=== PATIENT | male | born 1990 | race Caucasian/White ===

== ENCOUNTER 2022-11-30 18:13 | Emergency (ER) | payer SELFPAY ==
[2022-11-30 18:31] VITALS: BP 166/100; PULSE 93; RESP 16; TEMP 37.1; O2SAT 100
--- NOTE | 2022-11-30 19:07 | DI.RAD.S_ITS ---
PROCEDURE: XR CHEST 2V INDICATIONS: pain w/ inspiration TECHNIQUE: 2 views of the chest were acquired. COMPARISON: [facility] ([place]), CR, XR CHEST 2V, 10/30/2022, 10:33. FINDINGS: Surgical changes and devices: None. Lungs and pleura: Mild pulmonary vascular congestion is seen. No definite focal infiltrate. No pleural effusions or pneumothorax. Mediastinum: Mediastinal contours are normal. Heart size is normal. Bones and chest wall: No suspicious bony abnormalities. Soft tissues appear unremarkable. IMPRESSION: Mild congestion. No definite focal infiltrate. No pleural effusion or pneumothorax. Dictated by: Donald Richardson M.D. on 11/30/2022 at 19:22 Approved by: Donald Richardson M.D. on 11/30/2022 at 19:22
--- NOTE | 2022-11-30 23:55 | ED_ITS ---
HPI - Chest Pain General Chief Complaint: Chest Pain Stated Complaint: Sharp pain when taking a deep breathe Time Seen by Provider: 11/30/22 23:55 History of Present Illness HPI narrative: The patient healthy 32-year-old male presents today with right-sided rib pain. Started yesterday when he woke up. He was able to go to work. However today he was digging when he was having increasing pain he felt like sharp shooting pain going straight through him. Hurts to breathe hurts to move it is pinpoint in 1 particular spot. He is not had any fever chills or other symptoms. He reports that 2 weeks ago he is something similar but on the left side went to the doctor and he had be monitored Related Data Home Medications Medication Instructions Recorded Confirmed aspirin 325 mg tablet 325 mg PO PRN PRN ##0 05/18/17 Allergies Allergy/AdvReac Type Severity Reaction Status Date / Time Penicillins [PENICILLINS] Allergy Unknown Unverified 12/29/17 11:58 Review of Systems Review of Systems ROS Unobtainable: All systems reviewed & are unremarkable except as noted in HPI and below Patient History Social History Smoking Status: Current every day smoker Smoking Status: Current every day smoker tobacco type: cigarettes Substance Use Type: does not use Exam Initial Vital Signs Initial Vital Signs: Vital Signs Temperature 98.7 F 11/30/22 18:31 Pulse Rate 93 H 11/30/22 18:31 Respiratory Rate 16 11/30/22 18:31 Blood Pressure 166/100 H 11/30/22 18:31 Pulse Oximetry 100 11/30/22 18:31 Oxygen Delivery Method Room Air 11/30/22 18:31 GENERAL: Alert pleasant 32-year-old male and in no acute distress. HEENT: Head atraumatic,EOMI, pupils reactive, face symmetric, moist mucous membranes CARDIOVASCULAR: Regular rate and rhythm without murmurs, rubs or gallops. RESPIRATORY: Breath sounds equal bilaterally, no wheezes rales or rhonchi. Right lower anterior ribs tender to palpation 1 particular spot reproducible with palpation ABDOMEN: Soft, nontender. Normoactive bowel sounds all 4 quadrants. No guarding or rebound. Negative Aldridge sign no epigastric pain no guarding no rebound EXTREMITIES: Normal range of motion, no clubbing or edema. Neurovascularly intact NEUROLOGICAL: Alert and oriented x4. SKIN: Warm, dry, no laceration, no petechiae, no rashes or lesions. Course Orders Ordered: Discontinued Medications Ibuprofen (Ibuprofen 400 Mg Tablet) 800 mg PO NOW ONE Stop: 12/01/22 00:05 Last Admin: 12/01/22 00:09 Dose: 800 mg Documented By: MANUEL Ibuprofen (Ibuprofen 400 Mg Tablet) 400 mg PO NOW ONE Stop: 12/01/22 00:13 Last Admin: 12/01/22 00:17 Dose: Not Given Documented By: MANUEL Vital Signs Vital signs: Vital Signs - 8 hr 12/01/22 00:24 Pulse Rate 86 Respiratory Rate 18 Blood Pressure 158/90 H Pulse Oximetry 96 [facility] - Chest Pain Imaging Data Chest x-ray: Radiologist's Impression: PROCEDURE:? XR CHEST 2V ? INDICATIONS:? pain w/ inspiration ? TECHNIQUE:? 2 views of the chest were acquired.? ? COMPARISON:? [facility] [place], CR, XR CHEST 2V, 10/30/2022, 10:33. ? FINDINGS:? ? Surgical changes and devices:? None.? ? Lungs and pleura:? Mild pulmonary vascular congestion is seen.? No definite focal infiltrate.? No pleural effusions or pneumothorax.? ? Mediastinum:? Mediastinal contours are normal.? Heart size is normal.? ? Bones and chest wall:? No suspicious bony abnormalities.? Soft tissues appear unremarkable.? ? IMPRESSION:? Mild congestion.? No definite focal infiltrate.? No pleural effusion or pneumothorax. ? ? Dictated by: Donald Richardson M.D. on 11/30/2022 at 19:22 ? ? [facility] Narrative Medical decision making narrative: Patient healthy 32-year-old male presents with pinpoint right-sided rib pain. He works construction in labor. Symptoms are most consistent with a costochondritis. Definitely reproducible. Chest x-ray shows mild congestion however he has no symptoms of infection. Discharge Plan Departure Patient Disposition: Home Clinical Impression: Costochondritis Instructions: DI for Costochondritis Activity Restrictions/Additional Instructions: *You have been diagnosed with costochondritis *What to do: Recommend ice or heat. Try splinting with a pillow or hand do not Jun wrap her ribs. *Continue to take medications as directed Motrin 800 mg every 8 hours if needed for [id number] pain Tylenol 1000 mg every 6 hours if needed for [id number]-[id number] pain *Follow up with your primary care provider in 2-3 days or call [phone] *Return to ER if you should have increasing pain shortness of breath fever or any new, worsening or concerning symptoms Prescriptions: No Action aspirin 325 MG tablet 325 mg PO PRN PRNQty: 0 Stand Alone Forms: Patient Portal/API, Work Release Note
[2022-12-01] MEDS: IBUPROFEN 400 MG TABLET 800 MG PO (00:09)
[2022-12-01 00:24] VITALS: BP 158/90; PULSE 86; RESP 18; O2SAT 96
== END 2022-12-01 00:25 | disposition home or self-care (01) ==
PROVIDERS: Emergency Provider Emergency Medicine; Family Provider Internal Medicine
DX: M94.0 Chondrocostal junction syndrome [Tietze] (principal)
CPT/HCPCS: 71046; 99283

== ENCOUNTER 2024-03-09 19:12 | Emergency (ER) | payer SELFPAY ==
[2024-03-09 19:18] VITALS: BP 159/107; PULSE 111; RESP 18; TEMP 36.4; O2SAT 100; BMI 32.3
== END 2024-03-09 22:07 | disposition left against medical advice (07) ==
PROVIDERS: Emergency Provider Emergency Medicine; Family Provider Internal Medicine
CPT/HCPCS: 99281

== ENCOUNTER 2024-11-23 13:33 | Emergency (ER) | payer MEDICAID, SELFPAY ==
[2024-11-23 13:56] VITALS: BP 153/99; PULSE 95; RESP 17; TEMP 36.6; O2SAT 99; BMI 35.6
--- NOTE | 2024-11-23 14:46 | ED_ITS ---
HPI - Wound/Laceration <SAEID Burris - Last Filed: 11/23/24 14:51> General Chief Complaint: Wound/Laceration Stated Complaint: Got bit by a spider left index finger Time Seen by Provider: 11/23/24 14:38 History of Present Illness HPI narrative: 34-year-old male, daily smoker, presents to the emergency department with left index finger redness, warmth and swelling. Patient is unsure if this is related to a plant thorn or a spider bite. Home treatment has included warm water soaks x1. Patient has reported yellow discharge from the finger during the warm water soak. Related Data Previous Rx's Medication Instructions Recorded sulfamethoxazole 800 1 tab PO BID Finger cellulitis 10 11/23/24 mg-trimethoprim 160 mg tablet days #20 tabs (Bactrim DS) Allergies Allergy/AdvReac Type Severity Reaction Status Date / Time Penicillins [PENICILLINS] Allergy Unknown Verified 11/23/24 14:00 Review of Systems <SAEID Burris - Last Filed: 11/23/24 14:51> Review of Systems Narrative: Narrative: See HPI. GENERAL: Denies chills, fatigue, fever, sweats. HEENT: Denies sinus pain, ear pain, sore throat, difficulty swallowing, dizziness. RESPIRATORY: Denies dyspnea, cough, wheezing, sputum. CARDIOVASCULAR: Denies chest pain, palpitations, edema. GASTROINTESTINAL: Denies nausea, vomiting, abdominal pain, diarrhea, constipation. MSK: Denies weakness, joint pain, or bony pain. SKIN: Denies rash, skin lesions, or pruritis. Endorses left index finger redness, warmth, swelling and pain. NEUROLOGIC: Denies weakness, dizziness, headache, numbness, confusion. Patient History <SAEID Burris - Last Filed: 11/23/24 14:51> Social History Smoking Status: Current every day smoker Smoking Status: Current every day smoker tobacco type: cigarettes Exam <SAEID Burris - Last Filed: 11/23/24 14:51> Narrative Exam Narrative: Exam Narrative: GENERAL: This is a well-nourished, well-developed patient, in no acute distress HEAD: Atraumatic. Normocephalic. ENT: Nose without bleeding, purulent drainage. Airway patent. RESPIRATORY: Respiratory rate and effort are normal. MSK: Moves all extremities. Normal range of motion, no clubbing or edema. Neurovascularly intact. Left index finger dorsum with redness, warmth, swelling, fluctuance consistent with cellulitis. NEURO: A&O x 3. SKIN: Warm, dry, no rashes or lesions noted. Initial Vital Signs Initial Vital Signs: Vital Signs Temperature 98 F 11/23/24 13:56 Pulse Rate 95 H 11/23/24 13:56 Respiratory Rate 17 11/23/24 13:56 Blood Pressure 153/99 H 11/23/24 13:56 Pulse Oximetry 99 11/23/24 13:56 Oxygen Delivery Method Room Air 11/23/24 13:56 Reviewed <Letty Robins MD - Last Filed: 11/24/24 08:14> Initial Vital Signs Initial Vital Signs: Vital Signs Temperature 98 F 11/23/24 13:56 Pulse Rate 95 H 11/23/24 13:56 Respiratory Rate 17 11/23/24 13:56 Blood Pressure 153/99 H 11/23/24 13:56 Pulse Oximetry 99 11/23/24 13:56 Oxygen Delivery Method Room Air 11/23/24 13:56 Course <SAEID Burris - Last Filed: 11/23/24 14:51> Orders Ordered: Discontinued Medications Acetaminophen (Acetaminophen 325 Mg Tablet) 650 mg PO NOW ONE Stop: 11/23/24 14:46 Last Admin: 11/23/24 14:49 Dose: 650 mg Documented By: ARAM Ibuprofen (Ibuprofen 400 Mg Tablet) 400 mg PO NOW ONE Stop: 11/23/24 14:46 Last Admin: 11/23/24 14:48 Dose: 400 mg Documented By: ARAM Vital Signs Vital signs: Vital Signs - 8 hr 11/23/24 13:56 Temperature 98 F Pulse Rate 95 H Respiratory Rate 17 Blood Pressure 153/99 H Pulse Oximetry 99 Oxygen Delivery Method Room Air <Letty Robins MD - Last Filed: 11/24/24 08:14> Orders Ordered: Discontinued Medications Acetaminophen (Acetaminophen 325 Mg Tablet) 650 mg PO NOW ONE Stop: 11/23/24 14:46 Last Admin: 11/23/24 14:49 Dose: 650 mg Documented By: ARAM Ibuprofen (Ibuprofen 400 Mg Tablet) 400 mg PO NOW ONE Stop: 11/23/24 14:46 Last Admin: 11/23/24 14:48 Dose: 400 mg Documented By: ARAM Vital Signs Vital signs: Vital Signs - 8 hr 11/23/24 13:56 Temperature 98 F Pulse Rate 95 H Respiratory Rate 17 Blood Pressure 153/99 H Pulse Oximetry 99 Oxygen Delivery Method Room Air MDM - Wound/Laceration <SAEID Burris - Last Filed: 11/23/24 14:51> Differential Diagnosis Differential diagnosis: Likely abscess and other (Cellulitis) MDM Narrative Medical decision making narrative: 34-year-old male with left index finger infection. Clinical findings were consistent with cellulitis of left index finger. Recommended warm water soaks 2 to 3 times a day to facilitate drainage. Will begin patient on antibiotic therapy immediately. Tylenol and ibuprofen given in department. Discussed plan of care and return precautions with patient, who verbalized understanding and was agreeable with course of action. Discharge Plan Departure Patient Disposition: Home Clinical Impression: Cellulitis of finger of left hand Instructions: DI for Cellulitis -- Adult Activity Restrictions/Additional Instructions: *You have been diagnosed with left index finger cellulitis. As we discussed, I recommend warm water soaks 2 to 3 times a day to facilitate drainage. Continue taking Tylenol or ibuprofen as needed for discomfort. Will begin antibiotic therapy today. For any worsening symptoms, please return to the emergency department, otherwise follow up with your family doctor as needed. *What to do: *Please continue to take your regular medications as directed. [x ] New medication prescriptions sent to your pharmacy: [[facility]] [ ] New medication written as a paper prescription [ ] No new medications given *Please follow up with your primary care provider in 2-3 days, call for an appointment. Let them know you were seen in the Emergency Department and that we ask that you be seen in follow up. We will electronically transmit a record of today's note if your PCP is in our system *If you do not have a primary care provider please contact the [facility] Resource line at [phone]. They will ask some questions about your medical history and help get you set up with a doctor in the community. ? Return to ER if you should have any new, worsening or concerning symptoms, such as worsening pain, severe headache, confusion, chest pain, difficulty breathing, fever greater than 101 F, shaking chills, persistent vomiting to the point that you cannot drink fluids, or other new or worsening symptoms. Prescriptions: New sulfamethoxazole-trimethoprim [Bactrim DS] 800-160 mg tablet 1 tab PO BID 10 Days Qty: 20 0RF Stand Alone Forms: Patient Portal/API/Survey ED Sign-out <Letty Robins MD - Last Filed: 11/24/24 08:14> Cosign ED Attending Cosignature Attestation: I was immediately available in the department for consultation throughout this patient's visit. Letty Robins MD
[2024-11-23] MEDS: IBUPROFEN 400 MG TABLET PO (14:48)
[2024-11-23] MEDS: ACETAMINOPHEN 325 MG TABLET 650 MG PO (14:49)
[2024-11-23 15:03] VITALS: BP 149/88; PULSE 85; RESP 14; O2SAT 97
== END 2024-11-23 15:04 | disposition home or self-care (01) ==
PROVIDERS: Emergency Provider Registered Nurse; Family Provider Internal Medicine
DX: L03.114 Cellulitis of left upper limb (principal)
CPT/HCPCS: 99283